=== PATIENT | female | born 1960 | race Caucasian/White ===

== ENCOUNTER 2017-05-19 10:44 | Outpatient (CLI) | payer BC ==
[2017-05-19 17:48] LABS: BASOPHILS % (AUTO) 1.1 %; EOSINOPHILS # (AUTO) 0.1 10^3/uL (0.0-0.7); EOSINOPHILS % (AUTO) 2.2 %; HCT - HEMATOCRIT 41.2 % (37.0-47.0); HGB - HEMOGLOBIN 13.7 g/dL (12.0-16.0); LYMPHOCYTES # (AUTO) 1.3 10^3/uL (1.5-3.5); LYMPHOCYTES % (AUTO) 32.7 %; MEAN CORPUSCULAR HEMOGLOBIN 28.7 pg (27.0-31.0); MEAN CORPUSCULAR HGB CONC 33.2 g/dL (32.0-36.0); MEAN CORPUSCULAR VOLUME 86.5 fL (81.0-99.0); MEAN PLATELET VOLUME 8.8 fL (7.9-10.8); MONOCYTES # (AUTO) 0.3 10^3/uL (0.0-1.0); MONOCYTES % (AUTO) 7.6 %; NEUTROPHILS # (AUTO) 2.3 10^3/uL (1.5-6.6); NEUTROPHILS % (AUTO) 56.4 %; RED BLOOD COUNT 4.76 10^6/uL (4.20-5.40); UNCORRECTED WHITE BLOOD COUNT 4.1 x10^3/uL; WHITE BLOOD COUNT 4.1 x10^3/uL (4.8-10.8)
[2017-05-19 18:03] LABS: ALBUMIN/GLOBULIN RATIO 1.3 (1.0-2.2); BILIRUBIN,TOTAL 0.5 mg/dL (0.2-1.0); BUN - BLOOD UREA NITROGEN 13 mg/dL (6-20); CARBON DIOXIDE - CO2 29 mmol/L (21-32); CHLORIDE 100 mmol/L (101-111); CHOL/HDL RATIO 3.8 (<4.4); CHOLESTEROL 215 mg/dL; CREATININE 0.8 mg/dL (0.4-1.0); GFR - MDRD 74 (>89); GLUCOSE 100 mg/dL (70-100); HDL CHOLESTEROL 56 mg/dL; LDL/HDL RATIO 2.5 (<4.4); SODIUM 136 mmol/L (135-145); TOTAL PROTEIN 7.2 g/dL (6.7-8.2); TRIGLYCERIDES 93 mg/dL; VLDL CHOLESTEROL 19 mg/dL
[2017-05-19 19:22] LABS: HEMOGLOBIN A1C 0.54 g/dL
== END 2017-05-19 10:45 | disposition home or self-care (01) ==
LOC: LAB.F 10:44
PROVIDERS: ATTEND Nurse Practitioner Primary Care
DX: R73.01 Impaired fasting glucose (principal); Z79.899 Other long term (current) drug therapy; G43.909 Migraine, unspecified, not intractable, without status migrainosus; K90.0 Celiac disease; F41.9 Anxiety disorder, unspecified; E78.5 Hyperlipidemia, unspecified
CPT/HCPCS: 36415; 80053; 80061; 83036; 84443; 85025

== ENCOUNTER 2017-07-03 10:36 | Outpatient (CLI) | payer BC ==
--- NOTE | 2017-07-08 15:43 | DEXA Report ---
DEXA: 07/03/2017 CLINICAL INDICATION: Postmenopausal. TECHNIQUE: Dual energy x-ray absorptiometry (DXA) was performed on a myRet[employer] system. Regions measured are the AP spine, femoral neck, and, if needed, forearm. COMPARISON: None. In accordance with the International Society for Clinical Densitometry (ISCD) guidelines, data from previous exams may be reanalyzed using current recommendations and techniques. This is done to allow a more accurate basis for comparison with the current study. FINDINGS Data for the lumbar spine is as follows: REGION BMD (g/cm/cm) T-SCORE Z-SCORE L1 1.010 -1.0 -0.1 L2 1.021 -1.5 -0.6 L3 1.091 -0.9 0.0 L4 1.062 -1.1 -0.3 TOTAL 1.048 -1.1 -0.2 NOTE: All evaluable vertebrae are used for classification. Data for the hip is as follows: REGION BMD (g/cm/cm) T-SCORE Z-SCORE Neck 0.928 -0.8 0.2 TOTAL 0.998 -0.1 0.6 NOTE: The femoral neck or total proximal femur, whichever is lowest, is used for classification. IMPRESSION THE WHO CLASSIFICATION BASED ON THE INTERNATIONAL REFERENCE STANDARD IS OSTEOPENIA. THE FRACTURE RISK IS INCREASED. RECOMMENDATION: Patients with diagnosis of osteoporosis or osteopenia should have regular bone mineral density assessment. For those eligible for Medicare, routine testing is allowed once every 2 years. Testing frequency can be increased for patients who have rapidly progressing disease or for those who are receiving medical therapy to restore bone mass. COMMENT: World Health Organization (WHO) definitions for osteoporosis and osteopenia: NORMAL BMD: T-score at 1.0 or higher, fracture risk is low. OSTEOPENIA BMD: T-score between 1.0 and -2.5, fracture risk is increased. OSTEOPOROSIS BMD: T-score at 2.5 or lower, fracture risk high. National Osteoporosis Foundation recommends: 1. Obtain adequate dietary calcium (at least 1200 mg per day) and vitamin D (400 -800 international units per day). 2. Participate, as appropriate, in regular weightbearing and muscle- strengthening exercise. 3. Avoid tobacco use and reduce alcohol and caffeine intake. 4. For more detailed information see the website at www.NOF.org. TD: 07/03/2017 21:01 [email or web address]
== END 2017-07-03 10:37 | disposition home or self-care (01) ==
LOC: DI 10:36
PROVIDERS: ATTEND Nurse Practitioner Primary Care
DX: M85.88 Other specified disorders of bone density and structure, other site (principal)
CPT/HCPCS: 77080

== ENCOUNTER 2017-07-03 10:37 | Outpatient (CLI) | payer BC ==
--- NOTE | 2017-07-09 10:25 | Mammography Report ---
DATE OF SERVICE: 07/03/2017 DIGITAL BILATERAL SCREENING MAMMOGRAM: 07/03/2017 COMPARISON: Mammogram 10/02/2015. INDICATION: Screening mammography. TECHNIQUE: Bilateral MLO and CC breast views. FINDINGS: The breast parenchyma is heterogeneously dense, which may limit the sensitivity of mammography. No dominant mass, architectural distortion, or concerning cluster of microcalcifications are seen. IMPRESSION: BIRADS category 1. Negative. RECOMMENDATION: Annual screening mammogram. STANDARD QUALIFYING STATEMENTS 1. This examination was reviewed with the aid of Computed-Aided Detection (CAD) . 2. A negative or benign imaging report should not delay biopsy if clinically suspicious findings are present. Consider surgical consultation if warranted. More than 5% of cancers are not identified by imaging. 3. Dense breasts may obscure an underlying neoplasm. TD: 07/07/2017 21:23 DIEGO
== END 2017-07-03 10:38 | disposition home or self-care (01) ==
LOC: DI 10:37
PROVIDERS: ATTEND Nurse Practitioner Primary Care
DX: Z12.31 Encounter for screening mammogram for malignant neoplasm of breast (principal)
CPT/HCPCS: 77067

== ENCOUNTER 2018-12-22 16:04 | Outpatient (CLI) | payer BC ==
--- NOTE | 2018-12-23 08:26 | Mammography Report ---
Reason: SCREENING MAMMO Procedure Date: 12/22/2018 Accession Number: [id number] / [id number] Procedure: BELÉN - Screening Mammo w/Coleman CPT Code: FULL RESULT: EXAM: Screening Mammo w/Coleman DATE: 12/22/2018 4:29 PM CLINICAL HISTORY: Screening encounter. Distant family history of breast cancer in the maternal grandmother at the age of 70 and paternal grandmother at the age of 65 as well as a maternal aunt at an unknown age. TECHNIQUE: (B) - Bilateral CC and MLO views were obtained. COMPARISON: 07/03/2017 through 23/10/2010. PARENCHYMAL PATTERN: (D) - The breast(s) demonstrate(s) heterogeneously dense fibroglandular parenchyma. FINDINGS: There are no suspicious masses, calcifications, or areas of distortion. IMPRESSION: Negative examination. BI-RADS category 1. RECOMMENDATION: (ANNUAL) - Recommend routine annual screening mammography. BI-RADS CATEGORY: (1) - Negative. STANDARD QUALIFYING STATEMENTS: 1. This examination was not reviewed with the aid of Computer-Aided Detection (CAD). 2. A negative or benign imaging report should not preclude biopsy if clinically suspicious findings are present. 3. Dense breasts may obscure an underlying neoplasm. 4. This examination was reviewed with the aid of 3D breast imaging (tomosynthesis).
== END 2018-12-22 16:05 | disposition home or self-care (01) ==
LOC: DI 16:04
PROVIDERS: ATTEND Internal Medicine
DX: Z12.31 Encounter for screening mammogram for malignant neoplasm of breast (principal); Z80.3 Family history of malignant neoplasm of breast
CPT/HCPCS: 77063; 77067

== ENCOUNTER 2021-04-17 11:28 | Outpatient (CLI) | payer BC ==
--- NOTE | 2021-04-18 09:34 | Mammography Report ---
BILATERAL DIGITAL SCREENING MAMMOGRAM 3D/2D: 04/17/2021 CLINICAL: Routine screening. Comparison is made to exams dated: 12/22/2018 mammogram, 07/03/2017 mammogram, 10/02/2015 mammogram, a nd 05/12/2014 mammogram - [facility]. The tissue of both breasts is predominantly f atty. No significant masses, calcifications, or other findings are seen in either breast. There has been no significant interval change. IMPRESSION: NEGATIVE There is no mammographic evidence of malignancy. A 1 year screening mammogram is recommended. This exam was interpreted at Station ID: [id number]. NOTE: For mammograms, a report in lay terms will be sent to the patient. Approximately 15% of breast malignancies will not be visualized mammographically. In the management of a palpable breast mass, a negative mammogram must not discourage biopsy of a clinically suspicious lesion. Electronically Signed By: Manpreet Gonzalez M.D., jr/fredrick:04/17/2021 12:42:03 ACR BI-RADS Category 1: Negative 3341F PARENCHYMAL PATTERN: (F) - The breast(s) demonstrate(s) diffuse fatty replacement. BI-RADS CATEGORY: (1) - 1 RECOMMENDATION: (ANNUAL) - Recommend routine annual screening mammography. [id number] 1 year screening LATERALITY: (B)
== END 2021-04-17 11:29 | disposition home or self-care (01) ==
LOC: DI 11:28
DX: Z12.31 Encounter for screening mammogram for malignant neoplasm of breast (principal)

== ENCOUNTER 2022-11-18 09:26 | Outpatient (CLI) | payer BC ==
--- NOTE | 2022-11-19 10:38 | Mammography Report ---
BILATERAL DIGITAL SCREENING MAMMOGRAM 3D/2D: 11/18/2022 CLINICAL: Routine screening. Comparison is made to exams dated: 04/17/2021 mammogram, 12/22/2018 mammogram, and 07/03/2017 mammogr am - [facility]. Both breasts are heterogeneously dense, which may obscure small masses (category c / 51-75% glandular tissue). There is an asymmetry in the left breast posterior depth superior region seen on the mediolateral obl ique view only. This is more prominent. No other significant masses, calcifications, or other findings are seen in either breast. IMPRESSION: INCOMPLETE: NEEDS ADDITIONAL IMAGING EVALUATION The asymmetry in the left breast is indeterminate. Additional views with possible ultrasound are rec ommended. Based on the Tyrer Cuzick model (a risk assessment model) the patients lifetime risk is 18.8% and he r 10 year risk is 8.9%. According to the ACR, ACS, and NCCN guidelines, an annual breast MRI exam alana ng with mammogram is recommended if the patients lifetime risk is 20% or greater. This exam was interpreted at Station ID: [id number]. NOTE: For mammograms, a report in lay terms will be sent to the patient. Approximately 15% of breast malignancies will not be visualized mammographically. In the management of a palpable breast mass, a negative mammogram must not discourage biopsy of a clinically suspicious lesion. Electronically Signed By: Meng [email or web address]/[email or web address]:11/18/2022 12:14:59 ACR BI-RADS Category 0: Incomplete 3340F PARENCHYMAL PATTERN: (D) - The breast(s) demonstrate(s) heterogeneously dense fibroglandular jose e aguilar. BI-RADS CATEGORY: (0) - 0 Mammo and [place] [id number] Immediate follow-up LATERALITY: (L)
== END 2022-11-18 09:27 | disposition home or self-care (01) ==
LOC: DI 09:26
DX: Z12.31 Encounter for screening mammogram for malignant neoplasm of breast (principal); R92.8 Other abnormal and inconclusive findings on diagnostic imaging of breast

== ENCOUNTER 2022-12-18 09:14 | Outpatient (CLI) | payer BC ==
--- NOTE | 2022-12-18 12:18 | Mammography Report ---
UNILATERAL LEFT DIGITAL DIAGNOSTIC MAMMOGRAM 3D/2D WITH SPOT COMPRESSION: 12/18/2022 CLINICAL: Patient returns today to evaluate a focal asymmetry in the left breast. Comparison is made to exams dated: 11/18/2022 mammogram, 04/17/2021 mammogram, 12/22/2018 mammogram, 1 mammogram, 10/02/2015 mammogram, and 05/12/2014 mammogram - [facility]. The left breast is heterogeneously dense, which may obscure small masses (category c / 51-75% glandul ar tissue). There is an asymmetry in the left breast posterior depth superior region seen on the mediolateral obl ique view only. This is not seen in additional views. No other significant masses or calcifications are seen in the breast. IMPRESSION: INCOMPLETE: NEEDS ADDITIONAL IMAGING EVALUATION The asymmetry in the left breast is indeterminate. A targeted ultrasound is recommended and will immediately follow. Based on the Tyrer Cuzick model (a risk assessment model) the patients lifetime risk is 18.8% and he r 10 year risk is 8.9%. According to the ACR, ACS, and NCCN guidelines, an annual breast MRI exam alana ng with mammogram is recommended if the patients lifetime risk is 20% or greater. This exam was interpreted at Station ID: [id number]. NOTE: For mammograms, a report in lay terms will be sent to the patient. Approximately 15% of breast malignancies will not be visualized mammographically. In the management of a palpable breast mass, a negative mammogram must not discourage biopsy of a clinically suspicious lesion. Electronically Signed By: Cornelius García M.D. slc/:12/18/2022 09:53:54 ACR BI-RADS Category 0: Incomplete 3340F PARENCHYMAL PATTERN: (D) - The breast(s) demonstrate(s) heterogeneously dense fibroglandular paromaira aguilar. BI-RADS CATEGORY: (0) - 0 Ultrasound [id number] Immediate follow-up LATERALITY: (B)
--- NOTE | 2022-12-18 12:18 | Ultrasound Report ---
LIMITED ULTRASOUND OF LEFT BREAST: 12/18/2022 CLINICAL: Patient returns today to evaluate an asymmetry in the left breast. Comparison is made to exams dated: 12/18/2022 mammogram, 11/18/2022 mammogram, 04/17/2021 mammogram, mammogram, 07/03/2017 mammogram, and 10/02/2015 mammogram - [facility]. Real-time ultrasound of the left breast 10-12 o'clock region was performed. [place] scale images of the real-time examination were reviewed. No significant abnormalities were seen sonographically in the left breast in the region of possible a symmetry. IMPRESSION: NEGATIVE There is no sonographic evidence of malignancy. A 1 year screening mammogram is recommended. Exam findings were conveyed to the patient. This exam was interpreted at Station ID: [id number]. Electronically Signed By: Cornelius García M.D. slc/:12/18/2022 10:22:40 Ultrasound BI-RADS: 1 Negative BI-RADS CATEGORY: (1) - 1 Mammogram [id number] 1 year screening LATERALITY: (B)
== END 2022-12-18 09:15 | disposition home or self-care (01) ==
LOC: DI 09:14
PROVIDERS: ATTEND Hospitalist
DX: R92.8 Other abnormal and inconclusive findings on diagnostic imaging of breast (principal)